=== PATIENT | female | born 1955 | race Caucasian/White ===

== ENCOUNTER → 2023-06-04 16:58 | Outpatient (REF) | payer OTHER, SELFPAY | LOC: WDC 16:58 | PROVIDERS: ATTENDING PHYSICIAN Obstetrics & Gynecology Gynecology; FAMILY PHYSICIAN Family Medicine | DX: Z12.31 Encounter for screening mammogram for malignant neoplasm of breast (principal) | CPT/HCPCS: 77063; 77067 ==

== ENCOUNTER → 2024-03-23 19:29 | Outpatient (REF) | payer OTHER, SELFPAY | LOC: MRI 19:29 | PROVIDERS: ATTENDING PHYSICIAN Otolaryngology; FAMILY PHYSICIAN Family Medicine | DX: H90.42 Sensorineural hearing loss, unilateral, left ear, with unrestricted hearing on the contralateral side (principal); H81.02 Meniere's disease, left ear | CPT/HCPCS: 70553; A9585 ==

== ENCOUNTER → 2024-06-04 17:04 | Outpatient (REF) | payer OTHER, SELFPAY | LOC: WDC 17:04 | PROVIDERS: ATTENDING PHYSICIAN Obstetrics & Gynecology Gynecology; FAMILY PHYSICIAN Family Medicine | DX: Z12.31 Encounter for screening mammogram for malignant neoplasm of breast (principal) | CPT/HCPCS: 77063; 77067 ==

== ENCOUNTER → 2024-07-08 08:38 | Outpatient (REF) | payer OTHER, SELFPAY | LOC: HWRAD 08:38 | PROVIDERS: ATTENDING PHYSICIAN Family Medicine; REFERRING PHYSICIAN Obstetrics & Gynecology Gynecology | DX: M85.80 Other specified disorders of bone density and structure, unspecified site (principal) | CPT/HCPCS: 77080 ==